=== PATIENT | female | born 1960 | race Hispanic/Latino ===

== ENCOUNTER 2019-02-07 12:53 | Emergency (ER) | payer OTHER ==
[2019-02-07] MEDS ORDERED: LIDOCAINE 1% MPF 5 ML VIAL ONE (13:31)
--- NOTE | 2019-02-07 14:54 | EDPHYS ---
Physician Documentation [facility] Name: Yvonne Peñaloza Age: 58 yrs Sex: Female : 1960 Arrival Date: 02/07/2019 Time: 12:57 Bed 16 Private MD: Unknown, Unknown ED Physician Carlton Winter HPI: 02/07 14:35 This 58 yrs old Female presents to ER via Ambulatory with complaints of Breast kb Lump. 14:35 The patient presents with an abscess of the mid-sternal area. Description: kb erythematous, swollen. Onset: The symptoms/episode began/occurred 1 week(s) ago. Possible cause(s): unknown. Associated signs and symptoms: Pertinent positives: erythema, swelling. Modifying factors: the symptoms are alleviated by nothing, the symptoms are aggravated by pressure, squeezing the lesion and expressing the contents, touching. Severity of symptoms: At their worst the symptoms were moderate, in the emergency department the symptoms are unchanged. The patient has not experienced similar symptoms in the past. The patient has not recently seen a physician. Pt reports abscess between breasts for a week. Also reports sores/rash to bilateral legs for a year that she has seen dermatology for, but wanted looked at since she was here. Historical: - Allergies: 13:23 No Known Allergies; iw - Home Meds: 13:23 gabapentin 800 mg Oral tab 1 tab 3 times per day [Active]; glipizide 10 mg Oral tab 1 iw tab 2 times per day [Active]; hydrochlorothiazide 12.5 mg Oral tab 1 tab once daily [Active]; lisinopril 5 mg Oral tab 1 tab once daily [Active]; metformin 1,000 mg Oral tab 1 tab 2 times per day [Active]; pravastatin 20 mg Oral tab 1 tab once daily [Active]; - PMHx: 13:23 "water retention"; Diabetes - NIDDM; Hyperlipidemia; neuropathy; never dx with iw hypertension, told to take lisinopril to protect kidneys; - PSHx: 13:23 Appendectomy; iw - Immunization history:: Adult Immunizations up to date. - Social history:: Smoking status: Patient/guardian denies using tobacco. - Ebola Screening: : Patient negative for fever greater than or equal to 101.5 degrees Fahrenheit, and additional compatible Ebola Virus Disease symptoms Patient denies exposure to infectious person Patient denies travel to an Ebola-affected area in the 21 days before illness onset No symptoms or risks identified at this time. ROS: 14:32 Constitutional: Negative for fever, chills, and weight loss, Cardiovascular: Negative kb for chest pain, palpitations, and edema, Respiratory: Negative for shortness of breath, cough, wheezing, and pleuritic chest pain, Abdomen/GI: Negative for abdominal pain, nausea, vomiting, diarrhea, and constipation, : Negative for injury, bleeding, discharge, and swelling, MS/Extremity: Negative for injury and deformity, Neuro: Negative for headache, weakness, numbness, tingling, and seizure. 14:32 Skin: Positive for abscess, of the mid-sternal area. Exam: 14:32 Constitutional: This is a well developed, well nourished patient who is awake, alert, kb and in no acute distress. Head/Face: Normocephalic, atraumatic. Chest/axilla: Normal chest wall appearance and motion. Nontender with no deformity. No lesions are appreciated. Cardiovascular: Regular rate and rhythm with a normal S1 and S2. No gallops, murmurs, or rubs. Normal PMI, no JVD. No pulse deficits. Respiratory: Lungs have equal breath sounds bilaterally, clear to auscultation and percussion. No rales, rhonchi or wheezes noted. No increased work of breathing, no retractions or nasal flaring. Abdomen/GI: Soft, non-tender, with normal bowel sounds. No distension or tympany. No guarding or rebound. No evidence of tenderness throughout. Back: No spinal tenderness. No costovertebral tenderness. Full range of motion. MS/ Extremity: Pulses equal, no cyanosis. Neurovascular intact. Full, normal range of motion. Neuro: Awake and alert, GCS 15, oriented to person, place, time, and situation. Cranial nerves II-XII grossly intact. Motor strength 5/5 in all extremities. Sensory grossly intact. Cerebellar exam normal. Normal gait. 14:32 Skin: abscess, that is small, of the mid-sternal area, with fluctuance. Vital Signs: 13:23 BP 141 / 93; Pulse 91; Resp 16; Temp 97.2(TE); Pulse Ox 99% on R/A; iw 14:40 BP 133 / 84; Pulse 78; Resp 18; Temp 98.1; Pulse Ox 100% on R/A; Pain 3/10; Procedures: 14:52 I \\T\\ D: Incision and drainage was performed for an abscess of the mid-sternal area kb Prepped with Betadine, Anesthetized with 1 ml's 1% Lidocaine. Incised with #11 blade. Drained bloody fluid. Dressing: sterile 4x4 gauze, the patient tolerated the procedure well, no purulent discharge drained. Pt reports she has had areas cut in the ER in the past that they were unable to get anything out of before. . MDM: 13:06 Patient medically screened. kb 14:31 Data reviewed: vital signs, nurses notes. Data interpreted: Pulse oximetry: on room air kb is 99 %. Interpretation: normal. 14:53 Counseling: I had a detailed discussion with the patient and/or guardian regarding: the kb historical points, exam findings, and any diagnostic results supporting the discharge/admit diagnosis, the need for outpatient follow up, a family practitioner, a general surgeon, to return to the emergency department if symptoms worsen or persist or if there are any questions or concerns that arise at home. 02/07 13:27 Order name: I\\T\\D Setup; Complete Time: 14:51 kb Administered Medications: 13:36 Drug: Lidocaine (1 %) 1 vials {Note: placed at bedside.} Volume: 5 ml; Route: ch Infiltration; 14:40 Drug: Bactrim (160 mg-800 mg (DS) 1 tablet Route: PO; 15:11 Follow up: Response: Medication administered at discharge. Disposition: 15:12 Co-signature as Attending Physician, Carlton Winter MD I agree with the assessment and kdr plan of care. Disposition: 02/07/19 14:53 Discharged to Home. Impression: Cutaneous abscess of chest wall. - Condition is Stable. - Discharge Instructions: Skin Abscess, [id number]. - Prescriptions for Bactrim DS 800- 160 mg Oral Tablet - take 1 tablet by ORAL route every 12 hours for 10 days; 20 tablet. - Medication Reconciliation Form, Thank You Letter, Antibiotic Education, Prescription Opioid Use form. - Follow up: Private Physician; When: 2 - 3 days; Reason: Recheck today's complaints, Continuance of care, Re-evaluation by your physician. Follow up: Emergency Department; When: As needed; Reason: Worsening of condition. Signatures: Lashell Lord FNP-C FNP-Gabby Jaramillo, RN RN Carlton Winter MD MD [facility] Yola Anderson RN RN Corrections: (The following items were deleted from the chart) 15:00 14:53 02/07/2019 14:53 Discharged to Home. Impression: Cutaneous abscess of chest wall. ch Condition is Stable. Forms are Medication Reconciliation Form, Thank You Letter, Antibiotic Education, Prescription Opioid Use. Follow up: Private Physician; When: 2 - 3 days; Reason: Recheck today's complaints, Continuance of care, Re-evaluation by your physician. Follow up: Emergency Department; When: As needed; Reason: Worsening of condition. kb
--- NOTE | 2019-02-07 14:54 | ER ---
Nurse's Notes [facility] Name: Yvonne Peñaloza Age: 58 yrs Sex: Female : 1960 Arrival Date: 02/07/2019 Time: 12:57 Bed 16 Private MD: Unknown, Unknown Diagnosis: Cutaneous abscess of chest wall Presentation: 02/07 13:18 Presenting complaint: Patient states: abscess to mid sternal area, between breast, X 1 iw month, also has rash on legs for a year, has been to nurse office. Transition of care: patient was not received from another setting of care. Onset of symptoms was December 2018. Risk Assessment: Do you want to hurt yourself or someone else? Patient reports no desire to harm self or others. Initial Sepsis Screen: Does the patient meet any 2 criteria? No. Patient's initial sepsis screen is negative. Does the patient have a suspected source of infection? No. Patient's initial sepsis screen is negative. Care prior to arrival: None. 13:18 Method Of Arrival: Ambulatory iw 13:18 Acuity: LATHA 4 iw Historical: - Allergies: 13:23 No Known Allergies; iw - Home Meds: 13:23 gabapentin 800 mg Oral tab 1 tab 3 times per day [Active]; glipizide 10 mg Oral tab 1 iw tab 2 times per day [Active]; hydrochlorothiazide 12.5 mg Oral tab 1 tab once daily [Active]; lisinopril 5 mg Oral tab 1 tab once daily [Active]; metformin 1,000 mg Oral tab 1 tab 2 times per day [Active]; pravastatin 20 mg Oral tab 1 tab once daily [Active]; - PMHx: 13:23 "water retention"; Diabetes - NIDDM; Hyperlipidemia; neuropathy; never dx with iw hypertension, told to take lisinopril to protect kidneys; - PSHx: 13:23 Appendectomy; iw - Immunization history:: Adult Immunizations up to date. - Social history:: Smoking status: Patient/guardian denies using tobacco. - Ebola Screening: : Patient negative for fever greater than or equal to 101.5 degrees Fahrenheit, and additional compatible Ebola Virus Disease symptoms Patient denies exposure to infectious person Patient denies travel to an Ebola-affected area in the 21 days before illness onset No symptoms or risks identified at this time. Screenin:40 Abuse screen: Denies threats or abuse. Denies injuries from another. Nutritional ch screening: No deficits noted. Tuberculosis screening: No symptoms or risk factors identified. Fall Risk None identified. Assessment: 13:40 Reassessment: Patient appears in no apparent distress at this time. Patient and/or ch family updated on plan of care and expected duration. Pain level reassessed. Patient is alert, oriented x 3, equal unlabored respirations, skin warm/dry/pink. Patient states feeling better. General: Appears in no apparent distress. uncomfortable, Behavior is calm, cooperative, appropriate for age. Pain: Complains of pain in mid-sternal area Pain currently is 7 out of 10 on a pain scale. Neuro: No deficits noted. Respiratory: No deficits noted. GI: No signs and/or symptoms were reported involving the gastrointestinal system. : No signs and/or symptoms were reported regarding the genitourinary system. Derm: Skin is pink, warm \\T\\ dry. Abscess located on mid-sternal area is quarter sized, has no drainage, is raised, pt has a scar looking purplish lengthwise raised bump to mid chest, between breasts. Musculoskeletal: No signs and/or symptoms reported regarding the musculoskeletal system. Vital Signs: 13:23 BP 141 / 93; Pulse 91; Resp 16; Temp 97.2(TE); Pulse Ox 99% on R/A; iw 14:40 BP 133 / 84; Pulse 78; Resp 18; Temp 98.1; Pulse Ox 100% on R/A; Pain 3/10; ch ED Course: 12:57 Patient arrived in ED. ag5 12:57 Unknown, Unknown is Private Physician. ag5 13:05 Lashell Lord FNP-C [facility]. kb 13:06 Carlton Winter MD is Attending Physician. kb 13:20 Gabby Howard, GRAZYNA is Primary Nurse. ch 13:21 Triage completed. iw 13:23 Arm band placed on. iw 13:50 Patient has correct armband on for positive identification. Placed in gown. Bed in low ch position. Call light in reach. Side rails up X 1. 14:25 No apparent distress. Resting quietly. ch 14:25 Assist provider with I \\T\\ D: of an abscess on Set up I\\T\\D tray. Performed by Lashell [place] Dressing with 4X4s, tape Patient tolerated well. 14:25 IV discontinued. ch Administered Medications: 13:36 Drug: Lidocaine (1 %) 1 vials {Note: placed at bedside.} Volume: 5 ml; Route: ch Infiltration; 14:40 Drug: Bactrim (160 mg-800 mg (DS) 1 tablet Route: PO; 15:11 Follow up: Response: Medication administered at discharge. Outcome: 14:53 Discharge ordered by . pato 14:55 Discharged to home ambulatory, with family. 14:55 Condition: stable 14:55 Discharge instructions given to patient, Instructed on discharge instructions, follow up and referral plans. medication usage, Demonstrated understanding of instructions, follow-up care, medications, Prescriptions given X 1. 15:00 Patient left the ED. Signatures: Lashell Lord, NANCIE WOLFEP-CkGabby Thurman, RN RN Yola Anderson RN RN Anna Delong ag5 Corrections: (The following items were deleted from the chart) 15:09 13:40 BP 133 / 84; Pulse 78bpm; Resp 18bpm; Pulse Ox 100% RA; Temp 98.1F; Pain 3/10; [facility]
[2019-02-07] MEDS ORDERED: SMZ./TMP. 800/160 MG TABLET ONE (14:57)
[2019-02-07 15:06] VITALS: BP 141/93; TEMP 97.2; O2SAT 99
== END 2019-02-07 15:00 | disposition home or self-care (01) ==
LOC: ER 12:53
PROC: 0J960ZZ Drainage of Chest Subcutaneous Tissue and Fascia, Open Approach (ICD-10-PCS; principal; 2019-02-07)
DX: L02.213 Cutaneous abscess of chest wall (principal); I10 Essential (primary) hypertension; E11.9 Type 2 diabetes mellitus without complications; E78.5 Hyperlipidemia, unspecified
CPT/HCPCS: 99283

== ENCOUNTER 2021-04-25 10:30 | Day surgery (SDC) | payer OTHER ==
[2021-04-21 11:43] LABS: Absolute Lymphocytes (CBC) 2.8 K/uL (0.7-4.9); Hematocrit 36.3 % (36.0-45.0); Lymphocytes % 27.3 % (15.3-44.8); RBC Red Blood Cell Count 4.09 M/uL (3.86-4.86)
--- NOTE | 2021-04-21 11:43 | RAD REPORT ---
EXAM DESCRIPTION: Jim Wbeb (2 Views)04/21/2021 11:29 am CLINICAL HISTORY: Preop/hypertension COMPARISON: 2009 FINDINGS: The lungs appear clear of acute infiltrate. The heart is normal size IMPRESSION: No acute abnormalities displayed
[2021-04-21 11:59] LABS: Potassium 5.1 mmol/L (3.5-5.1)
[2021-04-25] MEDS ORDERED: FENTANYL CITR 100 MCG/2 ML ONE (10:42)
[2021-04-25] MEDS ORDERED: MIDAZOLAM HCL 2 MG/2 ML INJ ONE (10:42)
[2021-04-25] MEDS ORDERED: propofoL 200 MG/20 ML VIAL IV ONE (10:42)
[2021-04-25] MEDS ORDERED: LIDOCAINE 1% MPF 30 ML VIAL ONE (10:43)
[2021-04-25] MEDS ORDERED: dexAMETHasone 10 MG/ML VIAL ONE (10:43)
[2021-04-25] MEDS ORDERED: ONDANSETRON 4 MG/2 ML VIAL ONE (10:43)
[2021-04-25] MEDS ORDERED: KETOROLAC 30 MG/ML INJ ONE (10:43)
[2021-04-25] MEDS ORDERED: ACETAMINOPHEN 500 MG TAB ONE (11:11)
[2021-04-25] MEDS ORDERED: NA CHLORIDE 0.9% 1,000 ML ONE (11:12)
[2021-04-25] MEDS: CEFAZOLIN/NS 1gm 1 GM/50 ML BAG ONE ×2 (11:29→11:39)
[2021-04-25] MEDS: BUPIVACAINE 0.5% PF 10 ML VIAL ONE ×2 (11:39→11:52)
--- NOTE | 2021-04-25 12:00 | P.BOP ---
Preoperative diagnosis: Tender Mid chest and left flank subQ masses Postoperative diagnosis: same Primary procedure: 1. Excisional biopsy of Tender Mid chest subQ mass 3x3cm Secondary procedure: 2. Excisional biopsy of Tender left flank subQ mass 3x3cm Estimated blood loss: <10cc Specimen: mass x 2 Findings: Mid chest, left flank subQ masses Anesthesia: General Complications: None Transferred to: Recovery Room Condition: Good
[2021-04-25] MEDS: HYDROMORPHONE HCL 1 MG/ML INJ ONE ×2 (12:23→12:32)
[2021-04-25 12:43] VITALS: O2SAT 95
--- NOTE | 2021-04-25 12:59 | DS ---
Diagnosis: Mid tender chest and left flank subcutaneous masses. Procedure: Excisional biopsy of tender mid chest and left flank subcutaneous masses. Disposition: Home. Activity: As tolerated. No heavy lifting. Plan: Follow up in my office in 1 week. Call for appointment at [phone]. Medications: Include Bactrim DS p.o. b.i.d. and Tylenol No.3 q.4 hours p.r.n. pain. BRANDY/DARON Voice ID: [id number] Report ID: [id number]
--- NOTE | 2021-04-25 13:05 | OP ---
Date of Procedure: 04/25/2021 Surgeon: Jomar Marcial MD Preoperative Diagnosis: Tender mid chest and left flank subcutaneous mass. Postoperative Diagnosis: Tender mid chest and left flank subcutaneous mass. Procedures: 1.Excisional biopsy of tender mid chest subcutaneous mass, 3 x 3 cm. 2.Excisional biopsy of tender left flank subcutaneous mass, 3 x 3 cm. Estimated Blood Loss: Less than 10 mL. Specimen: Mass x2. Findings: Soft tissue tumors. Anesthesia: General plus local. Indication: This is the case of a female, who comes to us with 2 masses as indicated above. In the past, that had been draining with erythema with infection, treated. The infection apparently resolve d. The mass still present with discoloration and tenderness. She wants them excised. The benefits, alternatives, and risks of excision fully explained, which include, but not limited to infection, bl eeding, damage to adjacent structures, anesthesia complication, recurrence, HI and even . She a lso understands this may not relieve any symptoms. She might need more than one surgical interventio n. She understood, signed a consent. We both me and the patient marked the area of concerns in the holding room. Procedure In Detail: The patient was brought to the operating room, placed in supine position. Anes thesia was done without complication. Chest was prepped and draped in usual sterile fashion. A time -out was called. We proceeded to minimize losing the lesions. So, we proceeded to make t he chest first and the left flank second. Both of them using same technique which consisted of wedge incision of the skin. Incision carried down to deep subcutaneous tissue. Mass was completely excis ed. Irrigation was done, hemostasis obtained, and then closed with a combination of 0 chromic and 3- 0 nylon after sponge count and instrument counts correct. Each mass was done individually with the s toan technique. The patient tolerated the procedure well. At the end of the case, the sponge counts were correct. BRANDY/DARON Voice ID: [id number] Report ID: [id number]
[2021-04-25] MEDS ORDERED: CODEINE 30MG/APAP 300MG TAB ONE (13:23)
[2021-04-25 14:40] VITALS: BP 137/71; TEMP 96.7
== END 2021-04-25 14:25 | disposition home or self-care (01) ==
LOC: OR 10:30
PROVIDERS: ATTEND Surgery
PROC: 0JB60ZZ Excision of Chest Subcutaneous Tissue and Fascia, Open Approach (ICD-10-PCS; 2021-04-25)
PROC: 0JB80ZZ Excision of Abdomen Subcutaneous Tissue and Fascia, Open Approach (ICD-10-PCS; principal; 2021-04-25 11:45)
DX: R22.2 Localized swelling, mass and lump, trunk (principal); I96 Gangrene, not elsewhere classified; Z20.822 Contact with and (suspected) exposure to COVID-19
CPT/HCPCS: 93005; 85025; 80048; 36415; 82947; 88304; 71046; 11403 ×2; U0003; J2704; J2250; J3010; J1100; J1170; J0690; J7030; J2405; 88305